=== PATIENT | male | born 1965 | race African-American/Black ===

== ENCOUNTER 2019-05-28 12:16 | Observation (INO) ==
[2019-05-28] MEDS ORDERED: ASPIRIN 325 MG TABLET PO STA (12:47)
[2019-05-28] MEDS ORDERED: ALUM/MAG/SIMETH/LIDO VISC 1:1 30 ML BOTTLE PO STA (12:47)
[2019-05-28] MEDS ORDERED: MORPHINE 4 MG/1 ML VIAL IV STA (12:47)
[2019-05-28] MEDS ORDERED: NITROGLYCERIN 2% OINT 1 INCH/GM PACK TOP STA (12:47)
[2019-05-28] MEDS ORDERED: ONDANSETRON 4 MG/2 ML VIAL IV STA (12:47)
[2019-05-28 13:00] LABS: Basophils % 0.2 % (0.0-0.8); Eosinophils # 0.1 10*3/uL (0.0-0.87); Eosinophils % 0.4 % (0.00-10.9); Hematocrit 43.1 VOL% (42.0-52.0); Hemoglobin 15.2 GM/DL (14.0-18.0); Immature Granulocytes % 0.6 %; Immature Granulocytes Absolute 0.09 #; Lymphocytes # 1.7 10*3/uL (1.4-4.0); Lymphocytes % 10.7 % (21.2-54.2); Mean Corpuscular HGB Conc 35.3 GM/DL (32-36); Mean Corpuscular Volume 81.6 FL (87-102); Mean Platelet Volume 12.2 FL (9.6-12.0); Monocytes % 2.7 % (1.7-12.7); Neutrophils % 85.4 % (38.7-73.9); Platelet Count 227 T/CUMM (130-400); Red Blood Count 5.28 MC/CUMM (3.8-5.5); Red Cell Distribution Width 14.6 % (9.3-17.3)
[2019-05-28 13:14] LABS: PT Patient Result 11.3 SECS (9.6-12.2)
[2019-05-28 13:26] LABS: Albumin 4.1 G/DL (3.4-5.0); Bilirubin,Total 1.6 MG/DL (0.2-1.0); Calcium 9.1 MG/DL (8.5-10.1); Osmolality,Calculated 284.1 MOS/KG (273-304); Total Protein 7.9 G/DL (6.4-8.3)
[2019-05-28] MEDS ORDERED: ENOXAPARIN 100 MG/ML SYRINGE SUBCUT STA (14:05)
[2019-05-28] MEDS ORDERED: ENOXAPARIN 80 MG/0.8 ML SYRINGE SUBCUT ONE (14:10)
[2019-05-28] MEDS ORDERED: MAGNESIUM SULF RIDER 2 GM in PREMIX 1 EACH IV PRN (14:43)
[2019-05-28] MEDS ORDERED: MORPHINE 4 MG/1 ML VIAL IV PRN (14:43)
[2019-05-28] MEDS ORDERED: POTASSIUM CHLORIDE 20 MEQ TABLET PO PRN (14:43)
[2019-05-28] MEDS ORDERED: ONDANSETRON 4 MG/2 ML VIAL IV PRN (14:43)
[2019-05-28] MEDS: LOSARTAN 50 MG TABLET PO SCH (15:59)
[2019-05-28] MEDS: PANTOPRAZOLE 40 MG TABLET PO SCH (15:59)
[2019-05-28] MEDS ORDERED: hydrALAZINE 20 MG/1 ML VIAL IV PRN (16:11)
[2019-05-28 18:01] LABS: Thyroid Stimulating Hormone 0.822 uIU/ml (0.358-3.74)
[2019-05-28] MEDS ORDERED: ATORVASTATIN 20 MG TABLET PO SCH (21:00)
[2019-05-28] MEDS ORDERED: METOPROLOL TARTRATE 25 MG TABLET PO SCH (21:00)
[2019-05-28] MEDS ORDERED: ATORVASTATIN 80 MG TABLET PO SCH (21:00)
[2019-05-28] MEDS: POTASSIUM CHLORIDE 20 MEQ TABLET PO PRN (22:10)
[2019-05-28] MEDS: SOTALOL 80 MG TABLET PO SCH (22:10)
[2019-05-29] MEDS: POTASSIUM CHLORIDE 20 MEQ TABLET PO PRN (00:57)
[2019-05-29] MEDS: hydrALAZINE 25 MG TABLET PO SCH ×3 (00:57→16:46)
[2019-05-29 01:57] LABS: Apearance,Urine CLEAR (Clear); Bilirubin,Urine Negative (Negative); Blood, Urine Small mg/dL (Negative); Glucose,Urine (UA) Negative (Negative); Ketones,Urine 5 mg/dL (Negative); Mucus,Urine Occasional /LPF (Occasional); Nitrite,Urine Negative (Negative); Protein,Urine Negative; RBC,Urine 3 /HPF (0-4); Urine Color Yellow (Yellow); Urine Specific Gravity 1.017 (1.001-1.035); WBC,Urine <1 /HPF (0-6)
[2019-05-29 05:10] LABS: Barbiturates Screen,Urine Negative (Negative); Benzodiazepines Screen,Urine Negative (Negative); Cannabinoid Screen,Urine Negative (Negative); Opiate Screen,Urine Positive (Negative); Phencyclidine Screen,Urine Negative (Negative)
[2019-05-29 05:19] LABS: Basophils % 0.3 % (0.0-0.8); Eosinophils % 0.1 % (0.00-10.9); Hematocrit 39.9 VOL% (42.0-52.0); Immature Granulocytes % 0.4 %; Immature Granulocytes Absolute 0.04 #; Lymphocytes # 2.2 10*3/uL (1.4-4.0); Lymphocytes % 19.6 % (21.2-54.2); Mean Corpuscular HGB Conc 37.1 GM/DL (32-36); Mean Corpuscular Volume 80.4 FL (87-102); Mean Platelet Volume 12.5 FL (9.6-12.0); Monocytes % 7.6 % (1.7-12.7); Platelet Count 237 T/CUMM (130-400); Red Blood Count 4.96 MC/CUMM (3.8-5.5); Red Cell Distribution Width 14.5 % (9.3-17.3); White Blood Count 11.2 T/CUMM (4-12)
[2019-05-29 06:01] LABS: Albumin 3.2 G/DL (3.4-5.0); Bilirubin,Total 1.7 MG/DL (0.2-1.0); Calcium 8.6 MG/DL (8.5-10.1); Osmolality,Calculated 277.5 MOS/KG (273-304); Risk Ratio 3.38; Total Protein 6.6 G/DL (6.4-8.3); VLDL CHOLESTEROL 11.8 MG/DL
[2019-05-29 06:04] LABS: Hemoglobin 14.1 GM/DL (14.0-18.0)
[2019-05-29 06:08] LABS: Free T4 (Free Thyroxine) 1.1 NG/DL (0.76-1.46)
[2019-05-29] MEDS ORDERED: methIMAzole 10 MG TABLET PO SCH (09:00)
[2019-05-29] MEDS ORDERED: ASPIRIN EC 81 MG TABLET PO SCH (09:00)
[2019-05-29] MEDS: SOTALOL 80 MG TABLET PO SCH (10:18)
[2019-05-29] MEDS: LOSARTAN 50 MG TABLET PO SCH (10:18)
[2019-05-29] MEDS: PANTOPRAZOLE 40 MG TABLET PO SCH (10:18)
[2019-05-29] MEDS ORDERED: POTASSIUM CHLORIDE 20 MEQ TABLET PO PRN (10:59)
[2019-05-29] MEDS ORDERED: ENOXAPARIN 80 MG/0.8 ML SYRINGE SUBCUT SCH (15:00)
[2019-05-29 15:54] VITALS: BP 158/92
[2019-05-29] MEDS ORDERED: WARFARIN 5 MG TABLET PO SCH (18:00)
== END 2019-05-29 15:53 | disposition home or self-care (01) ==
LOC: N.ED 12:16 → N.EDINP 12:16 → N.TELEN 15:22
PROVIDERS: ADMIT Hospitalist; ATTEND Hospitalist

== ENCOUNTER 2021-07-17 08:00 | Inpatient (IN) ==
[2021-07-17] MEDS ORDERED: DEXTROSE 50% 25 GM/50 ML VIAL IV PRN (10:32)
[2021-07-17] MEDS ORDERED: GLUCAGON 1 MG VIAL IM PRN (10:32)
[2021-07-17] MEDS ORDERED: CLORAZEPATE 3.75 MG TABLET PO PRN (10:37)
[2021-07-17] MEDS ORDERED: SODIUM CHLORIDE 0.9% 1,000 ML IV SCH (11:00)
[2021-07-17 13:56] LABS: Basophils % 0.2 % (0.0-0.8); Eosinophils % 0.4 % (0.00-10.9); Hematocrit 42.6 VOL% (42.0-52.0); Hemoglobin 14.5 GM/DL (14.0-18.0); Immature Granulocytes % 0.5 %; Immature Granulocytes Absolute 0.05 #; Lymphocytes # 2.2 10*3/uL (1.4-4.0); Lymphocytes % 20.3 % (21.2-54.2); Mean Corpuscular Volume 77.2 FL (87-102); Mean Platelet Volume 10.9 FL (9.6-12.0); Monocytes % 6.9 % (1.7-12.7); Neutrophils % 71.7 % (38.7-73.9); Platelet Count 235 T/CUMM (130-400); Red Blood Count 5.52 MC/CUMM (3.8-5.5); Red Cell Distribution Width 16.4 % (9.3-17.3); White Blood Count 10.8 T/CUMM (4-12)
[2021-07-17 14:18] LABS: Bilirubin,Total 0.9 MG/DL (0.20-1.00); Calcium 9.5 MG/DL (8.5-10.1); Osmolality,Calculated 272.8 MOS/KG (273-304); Potassium 3.7 MMOL/L (3.5-5.1); Total Protein 8.7 G/DL (6.4-8.2)
[2021-07-17 14:48] LABS: Target Cells Few
[2021-07-17 14:49] LABS: Platelet Estimate Normal
[2021-07-17] MEDS: CHLORHEXIDINE 4% SOLN 118 ML BOTTLE TOP SCH ×2 (16:26→20:21)
[2021-07-17 16:38] LABS: ABG Base Excess 1.9 MMOL/L (-2.5-2.5); ABG HCO3 26.1 MMOL/L (20-26); ABG Oxygen Saturation 97.7 % (95-100); ABG PCO2 39.4 MM HG (35-48); ABG PH 7.431 (7.35-7.45); ABG TCO2 22.3 MMOL/L (23-27); Allen Test Positive; Pt O2 Delivery Device Room Air
[2021-07-17] MEDS: CHLORHEXIDINE 0.12% ORAL RINSE 60 ML BOTTLE SWISH/SPIT SCH (20:21)
[2021-07-18] MEDS: CHLORHEXIDINE 4% SOLN 118 ML BOTTLE TOP SCH ×2 (03:40→09:47)
[2021-07-18] MEDS ORDERED: VANCOMYCIN 1,000 MG VIAL ONE (04:17)
[2021-07-18] MEDS ORDERED: VANCOMYCIN INJ 1,000 MG in SODIUM CHLORIDE 0.9% 250 ML IV ONE (05:00)
[2021-07-18] MEDS ORDERED: SODIUM CHLORIDE 0.9% 1,000 ML IV SCH (06:00)
[2021-07-18] MEDS ORDERED: MIDAZOLAM 10 MG/2 ML VIAL ONE ×4 (06:08→06:09)
[2021-07-18] MEDS ORDERED: SUFentanil 250 MCG/5 ML AMP ONE ×2 (06:09)
[2021-07-18] MEDS ORDERED: NITROGLYCERIN DRIP 0 MG/0 ML BOTTLE IV ONE ×4 (06:09)
[2021-07-18] MEDS ORDERED: ALBUMIN 5% 25.0 GM/500 ML VIAL IV ONE ×2 (06:27→08:26)
[2021-07-18] MEDS ORDERED: ePHEDrine 50 MG/ML VIAL ONE (06:28)
[2021-07-18 07:30] LABS: ABG Base Excess 1.8 MMOL/L (-2.5-2.5); ABG HCO3 26.1 MMOL/L (20-26); ABG Oxygen Saturation 99.7 % (95-100); ABG PCO2 44.4 MM HG (35-48); ABG PH 7.395 (7.35-7.45); ABG TCO2 23.7 MMOL/L (23-27); Glucose Heart Surgery 96 MG/DL (74-106); Hematocrit Heart Surgery 40.4 PERCENT (42-52); Hemoglobin Heart Surgery 13.1 G/DL (14.0-18.0); Ionized Calcium Arterial 1.16 MMOL/L (1.21-1.46); PCO2 Patient Temp Arterial 44.4 MMHG; PH Patient Temp Arterial 7.395; Patient Temperature 37 CELCIUS; Potassium Heart/CVR 3.1 MMOL/L (3.5-5.1); Sodium Heart/CVR 140 MMOL/L (135-145)
[2021-07-18 07:58] LABS: Bilirubin,Urine Negative (Negative); Blood, Urine Small mg/dL (Negative); Glucose,Urine (UA) Negative (Negative); Ketones,Urine Negative (Negative); Nitrite,Urine Negative (Negative); Protein,Urine Negative; RBC,Urine 2 /HPF (0-4); Urine Appearance CLEAR (Clear); Urine Color Yellow (Yellow); Urine Specific Gravity 1.012 (1.001-1.035); Urine Urobilinogen < 2.0 EU/DL (0.2-1.0)
[2021-07-18] MEDS ORDERED: AMIODARONE 150 MG/3 ML VIAL ONE ×2 (08:10→08:13)
[2021-07-18] MEDS ORDERED: PHENYLEPHRINE DRIP 40 MG/250 ML PREMIX IV ONE (08:24)
[2021-07-18] MEDS ORDERED: POTASSIUM CHLORIDE RIDER 20 MEQ/100 ML PREMIX IV ONE (08:24)
[2021-07-18] MEDS ORDERED: NITROPRUSSIDE 50 MG/2 ML VIAL ONE (08:24)
[2021-07-18] MEDS ORDERED: SODIUM BICARBONATE 50 MEQ/50 ML VIAL IV ONE ×4 (08:24→19:21)
[2021-07-18] MEDS ORDERED: CALCIUM CHLORIDE 1,000 MG/10 ML SYRINGE IV ONE (08:25)
[2021-07-18] MEDS ORDERED: CALCIUM CHLORIDE 1,000 MG/10 ML VIAL IV ONE (08:29)
[2021-07-18] MEDS ORDERED: SODIUM CHLORIDE 0.9% 250 ML IV ONE (08:29)
[2021-07-18] MEDS ORDERED: LIDOCAINE 2% 5 ML VIAL ONE ×2 (08:29→09:55)
[2021-07-18] MEDS ORDERED: SODIUM CHLORIDE 0.9% 100 ML IV ONE (08:29)
[2021-07-18] MEDS ORDERED: LACTATED RINGERS 500 ML IV ONE (08:29)
[2021-07-18] MEDS ORDERED: SODIUM CHLORIDE 0.9% 1,000 ML IV ONE (08:29)
[2021-07-18] MEDS ORDERED: AMINOCAPROIC ACID 5,000 MG/20 ML VIAL ONE (08:29)
[2021-07-18] MEDS ORDERED: VECURONIUM 10 MG VIAL IV ONE (08:29)
[2021-07-18] MEDS ORDERED: SEVOFLURANE 1 UNIT/15 MINUTE INH ONE (08:29)
[2021-07-18] MEDS ORDERED: HEPARIN/NACL 0.9% 2 UNITS/ML 1,000 UNIT/500 ML BAG IV ONE (08:29)
[2021-07-18 08:32] LABS: Hemoglobin Heart Surgery 9.4 G/DL (14.0-18.0); PCO2 Patient Temp Venous 33.4 MM HG; PH Patient Temp Venous 7.48; PO2 Patient Temp Venous 44.2 MM HG; Potassium Heart/CVR 3.2 MMOL/L (3.5-5.1); VBG Base Excess 0.9 MEQ/L (0-4); VBG HCO3 24.8 MEQ/L (24-28); VBG Oxygen Saturation 85.7 %; VBG PCO2 36.5 MMHG (41-51); VBG PH 7.45; VBG PO2 50.8 MMHG (17-40); VBG Total CO2 25.9 MMOL/L
[2021-07-18] MEDS ORDERED: PHENYLEPHRINE DRIP 20 MG/250 ML PREMIX IV ONE (08:52)
[2021-07-18 09:06] LABS: Hemoglobin Heart Surgery 10.1 G/DL (14.0-18.0); PCO2 Patient Temp Venous 31.1 MM HG; PH Patient Temp Venous 7.493; PO2 Patient Temp Venous 38.9 MM HG; Potassium Heart/CVR 3.4 MMOL/L (3.5-5.1); VBG Base Excess 0.1 MEQ/L (0-4); VBG HCO3 24.2 MEQ/L (24-28); VBG Oxygen Saturation 85.9 %; VBG PCO2 37.1 MMHG (41-51); VBG PH 7.433; VBG PO2 51.5 MMHG (17-40); VBG Total CO2 25.4 MMOL/L
[2021-07-18] MEDS: CHLORHEXIDINE 0.12% ORAL RINSE 60 ML BOTTLE SWISH/SPIT SCH ×2 (09:47→21:31)
[2021-07-18 09:52] LABS: ABG Base Excess -1.4 MMOL/L (-2.5-2.5); ABG HCO3 23.3 MMOL/L (20-26); ABG Oxygen Saturation 99.8 % (95-100); ABG PCO2 38.7 MM HG (35-48); ABG PH 7.389 (7.35-7.45); ABG TCO2 21.2 MMOL/L (23-27); Glucose Heart Surgery 166 MG/DL (74-106); Hematocrit Heart Surgery 31.7 PERCENT (42-52); Hemoglobin Heart Surgery 10.2 G/DL (14.0-18.0); Ionized Calcium Arterial 1.26 MMOL/L (1.21-1.46); PCO2 Patient Temp Arterial 38.7 MMHG; PH Patient Temp Arterial 7.389; Patient Temperature 37 CELCIUS; Potassium Heart/CVR 3.4 MMOL/L (3.5-5.1); Sodium Heart/CVR 136 MMOL/L (135-145)
[2021-07-18] MEDS ORDERED: ALBUMIN 25% 25 GM/100 ML VIAL IV ONE (09:54)
[2021-07-18] MEDS ORDERED: PROTAMINE SULFATE 250 MG/25 ML VIAL IV ONE (09:55)
[2021-07-18] MEDS ORDERED: PROTAMINE SULFATE 50 MG/5 ML VIAL IV ONE ×2 (09:55→14:28)
[2021-07-18] MEDS ORDERED: FUROSEMIDE 20 MG/2 ML VIAL ONE (09:55)
[2021-07-18] MEDS ORDERED: methylPREDNISolone SOD SUC 1,000 MG/8 ML VIAL ONE (09:55)
[2021-07-18] MEDS ORDERED: HEPARIN 10,000 UNIT/10 ML VIAL ONE (09:55)
[2021-07-18] MEDS ORDERED: MAGNESIUM SULFATE 5 GM/10 ML VIAL IV ONE (09:55)
[2021-07-18] MEDS ORDERED: MANNITOL 100 GM/500 ML BAG IV ONE (09:55)
[2021-07-18] MEDS ORDERED: DEXTROSE 5% KCL 20 MEQ 20 MEQ/1,000 ML BAG IV ONE (09:55)
[2021-07-18] MEDS ORDERED: MIDAZOLAM 2 MG/2 ML VIAL IV PRN (10:03)
[2021-07-18] MEDS ORDERED: MIDAZOLAM 10 MG/2 ML VIAL IV PRN (10:03)
[2021-07-18] MEDS ORDERED: DEXTROSE 50% 25 GM/50 ML VIAL IV PRN ×2 (10:03)
[2021-07-18] MEDS ORDERED: CHLORHEXIDINE 4% SOLN 118 ML BOTTLE TOP PRN (10:03)
[2021-07-18] MEDS ORDERED: INSULIN REGULAR 100 UNIT/ML IV ONE (10:03)
[2021-07-18] MEDS ORDERED: INSULIN REGULAR DRIP 100 ML IV SCH (10:03)
[2021-07-18] MEDS ORDERED: NITROPRUSSIDE 100 MG in DEXTROSE 5% 250 ML IV PRN (10:03)
[2021-07-18] MEDS ORDERED: MAGNESIUM SULF RIDER 4 GM/100 ML PREMIX IV PRN (10:03)
[2021-07-18] MEDS ORDERED: MORPHINE 10 MG/1 ML VIAL IV PRN (10:03)
[2021-07-18] MEDS ORDERED: ACETAMINOPHEN 650 MG SUPP RECTAL PRN (10:03)
[2021-07-18] MEDS ORDERED: VECURONIUM 10 MG VIAL IV PRN ×2 (10:03)
[2021-07-18] MEDS ORDERED: ALBUMIN 5% 12.5 GM/250 ML VIAL IV PRN (10:03)
[2021-07-18] MEDS ORDERED: INSULIN REGULAR 100 UNIT/ML IV PRN (10:03)
[2021-07-18] MEDS ORDERED: PHENYLEPHRINE DRIP 40 MG/250 ML PREMIX IV PRN (10:03)
[2021-07-18] MEDS ORDERED: MAGNESIUM SULF RIDER 2 GM/50 ML PREMIX IV PRN (10:03)
[2021-07-18] MEDS ORDERED: CALCIUM CHLORIDE 1,000 MG/10 ML SYRINGE IV PRN (10:03)
[2021-07-18] MEDS ORDERED: ONDANSETRON 4 MG/2 ML VIAL IV PRN (10:03)
[2021-07-18] MEDS ORDERED: SODIUM CHLORIDE 0.45% 1,000 ML IV SCH (10:03)
[2021-07-18] MEDS: SODIUM CHLORIDE 0.45% 1,000 ML IV SCH (11:00)
[2021-07-18] MEDS ORDERED: AMIODARONE INJ 450 MG in DEXTROSE 5% 241 ML IV SCH (11:00)
[2021-07-18] MEDS: LACTATED RINGERS 250 ML IV PRN ×10 (11:10→22:51)
[2021-07-18 11:13] LABS: ABG Base Excess -1.8 MMOL/L (-2.5-2.5); ABG HCO3 22.5 MMOL/L (20-26); ABG Oxygen Saturation 98.2 % (95-100); ABG PCO2 36.6 MM HG (35-48); ABG PH 7.407 (7.35-7.45); ABG PO2 164.1 MM HG (80-95); ABG TCO2 23.6 MMOL/L (23-27); Glucose Heart Surgery 126 MG/DL (74-106); Hemoglobin Heart Surgery 10.8 G/DL (14.0-18.0); Potassium Heart/CVR 3.3 MMOL/L (3.5-5.1)
[2021-07-18 11:15] LABS: Basophils % 0.2 % (0.0-0.8); Eosinophils % 0.2 % (0.00-10.9); Hematocrit 30.5 VOL% (42.0-52.0); Immature Granulocytes % 0.7 %; Immature Granulocytes Absolute 0.09 #; Lymphocytes # 0.9 10*3/uL (1.4-4.0); Mean Corpuscular HGB Conc 34.1 GM/DL (32-36); Mean Corpuscular Volume 77.6 FL (87-102); Mean Platelet Volume 11.1 FL (9.6-12.0); Monocytes % 3.1 % (1.7-12.7); Neutrophils % 88.8 % (38.7-73.9); Red Cell Distribution Width 16.1 % (9.3-17.3); White Blood Count 12.9 T/CUMM (4-12)
[2021-07-18 11:20] LABS: Hemoglobin 10.4 GM/DL (14.0-18.0); Platelet Count 160 T/CUMM (130-400); Red Blood Count 3.93 MC/CUMM (3.8-5.5)
[2021-07-18 11:29] LABS: INR 1.2; PT Patient Result 13.8 SECS (10.5-12.0); Partial Thromboplastin Time 32.8 SECS (23.8-32.1)
[2021-07-18] MEDS: POTASSIUM CHLORIDE RIDER 20 MEQ/100 ML PREMIX IV PRN ×6 (11:33→22:23)
[2021-07-18 11:46] LABS: CKMB % 7.9 %
[2021-07-18 11:47] LABS: High Sensitive Troponin I* 4231.1 ng/L (0-78)
[2021-07-18 11:58] LABS: Albumin 3.4 G/DL (3.4-5.0); Bilirubin,Total 1.3 MG/DL (0.20-1.00); Calcium 8.3 MG/DL (8.5-10.1); Osmolality,Calculated 280.4 MOS/KG (273-304); Potassium 3.4 MMOL/L (3.5-5.1); Total Protein 6.3 G/DL (6.4-8.2)
[2021-07-18 13:17] LABS: ABG HCO3 22.2 MMOL/L (20-26); ABG PCO2 35.9 MM HG (35-48); ABG PH 7.409 (7.35-7.45); ABG PO2 138.6 MM HG (80-95); ABG TCO2 23.3 MMOL/L (23-27); Glucose Heart Surgery 149 MG/DL (74-106); Hemoglobin Heart Surgery 10.9 G/DL (14.0-18.0); Potassium Heart/CVR 3.8 MMOL/L (3.5-5.1)
[2021-07-18] MEDS: POTASSIUM CHLORIDE RIDER 10 MEQ/100 ML PREMIX IV PRN ×3 (13:59→22:55)
[2021-07-18] MEDS ORDERED: KETOROLAC 30 MG/1 ML VIAL IV SCH (14:00)
[2021-07-18 15:17] LABS: ABG Base Excess -0.8 MMOL/L (-2.5-2.5); ABG HCO3 23.8 MMOL/L (20-26); ABG Oxygen Saturation 98.6 % (95-100); ABG PCO2 36.6 MM HG (35-48); ABG PH 7.415 (7.35-7.45); ABG TCO2 21.4 MMOL/L (23-27); Glucose Heart Surgery 184 MG/DL (74-106); Hematocrit Heart Surgery 29.4 PERCENT (42-52); Hemoglobin Heart Surgery 9.5 G/DL (14.0-18.0); Potassium Heart/CVR 4.3 MMOL/L (3.5-5.1)
[2021-07-18] MEDS: AMIODARONE INJ 450 MG in DEXTROSE 5% 241 ML IV SCH (16:41)
[2021-07-18] MEDS ORDERED: FUROSEMIDE 40 MG/4 ML VIAL IV ONE (18:04)
[2021-07-18] MEDS ORDERED: FUROSEMIDE 40 MG/4 ML VIAL IV PRN (18:05)
[2021-07-18 18:09] LABS: ABG Base Excess -6.8 MMOL/L (-2.5-2.5); ABG HCO3 18.9 MMOL/L (20-26); ABG Oxygen Saturation 98.4 % (95-100); ABG PCO2 39.5 MM HG (35-48); ABG PH 7.296 (7.35-7.45); ABG TCO2 17.6 MMOL/L (23-27); Glucose Heart Surgery 220 MG/DL (74-106); Hemoglobin Heart Surgery 10.7 G/DL (14.0-18.0); Potassium Heart/CVR 3.6 MMOL/L (3.5-5.1)
[2021-07-18] MEDS: INSULIN REGULAR 100 UNIT/ML SUBCUT SCH (18:21)
[2021-07-18 19:09] LABS: ABG Base Excess -6.2 MMOL/L (-2.5-2.5); ABG HCO3 19.3 MMOL/L (20-26); ABG Oxygen Saturation 98.4 % (95-100); ABG PCO2 34.8 MM HG (35-48); Glucose Heart Surgery 243 MG/DL (74-106); Hematocrit Heart Surgery 34.4 PERCENT (42-52); Hemoglobin Heart Surgery 11.2 G/DL (14.0-18.0); Potassium Heart/CVR 3.8 MMOL/L (3.5-5.1)
[2021-07-18 19:38] LABS: CKMB % 6.6 %
[2021-07-18 19:41] LABS: High Sensitive Troponin I* 12532.9 ng/L (0-78)
[2021-07-18 20:00] LABS: Hematocrit Heart Surgery 34.1 PERCENT (42-52); Hemoglobin Heart Surgery 11.1 G/DL (14.0-18.0); PCO2 Patient Temp Venous 39.1 MM HG; PH Patient Temp Venous 7.314; Potassium Heart/CVR 3.9 MMOL/L (3.5-5.1); VBG HCO3 19.3 MEQ/L (24-28); VBG Oxygen Saturation 82.5 %; VBG PCO2 39.1 MMHG (41-51); VBG PH 7.314
[2021-07-18] MEDS: VANCOMYCIN INJ 1,000 MG in SODIUM CHLORIDE 0.9% 250 ML IV SCH (21:45)
[2021-07-18 21:49] LABS: ABG Base Excess -7.2 MMOL/L (-2.5-2.5); ABG HCO3 18.6 MMOL/L (20-26); ABG Oxygen Saturation 98.6 % (95-100); ABG PH 7.323 (7.35-7.45); ABG TCO2 16.4 MMOL/L (23-27); Glucose Heart Surgery 231 MG/DL (74-106); Hematocrit Heart Surgery 34.7 PERCENT (42-52); Hemoglobin Heart Surgery 11.3 G/DL (14.0-18.0); Potassium Heart/CVR 3.7 MMOL/L (3.5-5.1)
[2021-07-18] MEDS ORDERED: INSULIN REGULAR DRIP 100 ML IV PRN (22:31)
[2021-07-18 22:57] LABS: ABG Base Excess -7.4 MMOL/L (-2.5-2.5); ABG HCO3 18.5 MMOL/L (20-26); ABG Oxygen Saturation 98.7 % (95-100); ABG PCO2 34.9 MM HG (35-48); ABG TCO2 16.3 MMOL/L (23-27); Glucose Heart Surgery 213 MG/DL (74-106); Potassium Heart/CVR 4.2 MMOL/L (3.5-5.1)
[2021-07-18 23:47] LABS: ABG HCO3 18.7 MMOL/L (20-26); ABG Oxygen Saturation 98.8 % (95-100); ABG PH 7.318 (7.35-7.45); ABG TCO2 16.6 MMOL/L (23-27); Glucose Heart Surgery 208 MG/DL (74-106); Hemoglobin Heart Surgery 11.4 G/DL (14.0-18.0); Potassium Heart/CVR 4.2 MMOL/L (3.5-5.1)
[2021-07-19] MEDS: INSULIN REGULAR 100 UNIT/ML SUBCUT SCH ×4 (00:16→18:10)
[2021-07-19 01:38] LABS: ABG Base Excess -4.4 MMOL/L (-2.5-2.5); ABG HCO3 20.8 MMOL/L (20-26); ABG PCO2 35.6 MM HG (35-48); ABG PH 7.365 (7.35-7.45); ABG TCO2 18.3 MMOL/L (23-27); Glucose Heart Surgery 160 MG/DL (74-106); Hematocrit Heart Surgery 33.8 PERCENT (42-52); Potassium Heart/CVR 3.9 MMOL/L (3.5-5.1)
[2021-07-19 02:36] LABS: ABG Base Excess -3.1 MMOL/L (-2.5-2.5); ABG HCO3 21.9 MMOL/L (20-26); ABG Oxygen Saturation 98.9 % (95-100); ABG PCO2 34.9 MM HG (35-48); ABG PH 7.392 (7.35-7.45); ABG TCO2 19.2 MMOL/L (23-27); Glucose Heart Surgery 142 MG/DL (74-106); Hemoglobin Heart Surgery 10.7 G/DL (14.0-18.0); Potassium Heart/CVR 3.8 MMOL/L (3.5-5.1)
[2021-07-19] MEDS: POTASSIUM CHLORIDE RIDER 20 MEQ/100 ML PREMIX IV PRN (02:44)
[2021-07-19] MEDS: POTASSIUM CHLORIDE RIDER 10 MEQ/100 ML PREMIX IV PRN (03:15)
[2021-07-19 03:29] LABS: ABG Base Excess -3.2 MMOL/L (-2.5-2.5); ABG HCO3 21.8 MMOL/L (20-26); ABG Oxygen Saturation 99.2 % (95-100); ABG PCO2 36.9 MM HG (35-48); ABG PH 7.375 (7.35-7.45); ABG TCO2 19.6 MMOL/L (23-27); Glucose Heart Surgery 141 MG/DL (74-106); Hemoglobin Heart Surgery 10.3 G/DL (14.0-18.0); Potassium Heart/CVR 4.3 MMOL/L (3.5-5.1)
[2021-07-19 03:30] LABS: Basophils % 0.1 % (0.0-0.8); Hematocrit 29.4 VOL% (42.0-52.0); Hemoglobin 10.1 GM/DL (14.0-18.0); Immature Granulocytes % 0.6 %; Immature Granulocytes Absolute 0.09 #; Lymphocytes # 0.8 10*3/uL (1.4-4.0); Mean Corpuscular HGB Conc 34.4 GM/DL (32-36); Mean Platelet Volume 11.1 FL (9.6-12.0); Monocytes % 8.6 % (1.7-12.7); Neutrophils % 85.7 % (38.7-73.9); Platelet Count 173 T/CUMM (130-400); Red Blood Count 3.72 MC/CUMM (3.8-5.5); Red Cell Distribution Width 17.9 % (9.3-17.3); White Blood Count 16.3 T/CUMM (4-12)
[2021-07-19 03:48] LABS: CKMB % 5.6 %
[2021-07-19 03:57] LABS: High Sensitive Troponin I* 15055.2 ng/L (0-78)
[2021-07-19 04:18] LABS: Albumin 3.6 G/DL (3.4-5.0); Bilirubin,Direct 0.2 MG/DL (0.0-0.20); Bilirubin,Total 1.2 MG/DL (0.20-1.00); Calcium 8.1 MG/DL (8.5-10.1); Potassium 4.3 MMOL/L (3.5-5.1); Total Protein 6.7 G/DL (6.4-8.2)
[2021-07-19] MEDS ORDERED: KETOROLAC 30 MG/1 ML VIAL IV ONE (06:02)
[2021-07-19] MEDS: AMIODARONE INJ 450 MG in DEXTROSE 5% 241 ML IV SCH (08:00)
[2021-07-19] MEDS: VANCOMYCIN INJ 1,000 MG in SODIUM CHLORIDE 0.9% 250 ML IV SCH (08:30)
[2021-07-19] MEDS: hydrALAZINE 25 MG TABLET PO SCH (08:42)
[2021-07-19] MEDS: methIMAzole 5 MG TABLET PO SCH (08:42)
[2021-07-19] MEDS: ASPIRIN EC 81 MG TABLET PO SCH (08:42)
[2021-07-19] MEDS: PANTOPRAZOLE 40 MG TABLET PO SCH (08:42)
[2021-07-19] MEDS: AMIODARONE 200 MG TABLET PO SCH ×2 (08:42→20:04)
[2021-07-19] MEDS: LOSARTAN 50 MG TABLET PO SCH (08:42)
[2021-07-19] MEDS: CHLORHEXIDINE 0.12% ORAL RINSE 60 ML BOTTLE SWISH/SPIT SCH ×2 (08:50→20:05)
[2021-07-19] MEDS: SODIUM CHLORIDE 0.45% 1,000 ML IV SCH (11:00)
[2021-07-19] MEDS: KETOROLAC 30 MG/1 ML VIAL IV SCH ×2 (12:25→18:10)
[2021-07-19] MEDS ORDERED: GLUCAGON 1 MG VIAL IM PRN (15:12)
[2021-07-19] MEDS ORDERED: ONDANSETRON 4 MG/2 ML VIAL IV PRN (15:12)
[2021-07-19] MEDS ORDERED: ALUMINUM/MAGNES/SIMETH MAX STR 30 ML UDCUP PO PRN (15:12)
[2021-07-19] MEDS ORDERED: MAGNESIUM SULF RIDER 2 GM/50 ML PREMIX IV PRN (15:12)
[2021-07-19] MEDS ORDERED: oxyCODONE/ACETAMINOPHEN 5-325 MG TABLET PO PRN (15:12)
[2021-07-19] MEDS ORDERED: MAGNESIUM SULF RIDER 4 GM/100 ML PREMIX IV PRN (15:12)
[2021-07-19] MEDS ORDERED: ZALEPLON 5 MG CAPSULE PO PRN (15:12)
[2021-07-19] MEDS ORDERED: SODIUM CHLOR 0.45% KCL 20 MEQ 20 MEQ/1,000 ML BAG IV SCH (15:12)
[2021-07-19] MEDS ORDERED: DEXTROSE 50% 25 GM/50 ML VIAL IV PRN (15:12)
[2021-07-19] MEDS ORDERED: MAGNESIUM HYDROXIDE SUSP 30 ML UDCUP PO PRN (15:12)
[2021-07-19] MEDS: ATORVASTATIN 80 MG TABLET PO SCH (20:04)
[2021-07-20] MEDS: VANCOMYCIN INJ 1,000 MG in SODIUM CHLORIDE 0.9% 250 ML IV SCH ×2 (00:04→11:39)
[2021-07-20] MEDS: KETOROLAC 30 MG/1 ML VIAL IV SCH ×2 (00:04→06:00)
[2021-07-20] MEDS: INSULIN REGULAR 100 UNIT/ML SUBCUT SCH ×5 (00:21→23:41)
[2021-07-20] MEDS ORDERED: FUROSEMIDE 40 MG/4 ML VIAL IV ONE ×3 (06:00→16:00)
[2021-07-20 07:06] LABS: Albumin 2.8 G/DL (3.4-5.0); Bilirubin,Direct 0.22 MG/DL (0.0-0.20); Bilirubin,Direct 0.23 MG/DL (0.0-0.20); Bilirubin,Indirect 0.6 MG/DL (0.0-1.0); Bilirubin,Total 0.8 MG/DL (0.20-1.00); CKMB % 2.3 %; Calcium 8.3 MG/DL (8.5-10.1); Osmolality,Calculated 285.5 MOS/KG (273-304); Potassium 4.6 MMOL/L (3.5-5.1); Total Protein 5.9 G/DL (6.4-8.2)
[2021-07-20 07:08] LABS: High Sensitive Troponin I* 10028.9 ng/L (0-78)
[2021-07-20] MEDS ORDERED: KETOROLAC 15 MG/1 ML VIAL IV PRN (07:40)
[2021-07-20] MEDS: methIMAzole 5 MG TABLET PO SCH (09:51)
[2021-07-20] MEDS: FERROUS SULFATE 325 MG TABLET PO SCH (09:51)
[2021-07-20] MEDS: DOCUSATE SODIUM 100 MG CAPSULE PO SCH (09:51)
[2021-07-20] MEDS: ASPIRIN EC 81 MG TABLET PO SCH (09:52)
[2021-07-20] MEDS: FUROSEMIDE 40 MG TABLET PO SCH (09:52)
[2021-07-20] MEDS: PANTOPRAZOLE 40 MG TABLET PO SCH (09:52)
[2021-07-20] MEDS: hydrALAZINE 25 MG TABLET PO SCH (09:52)
[2021-07-20] MEDS: LOSARTAN 50 MG TABLET PO SCH (09:52)
[2021-07-20] MEDS: CHLORHEXIDINE 0.12% ORAL RINSE 60 ML BOTTLE SWISH/SPIT SCH ×2 (09:52→20:14)
[2021-07-20] MEDS: AMIODARONE 200 MG TABLET PO SCH ×2 (09:52→20:13)
[2021-07-20 10:33] LABS: Basophils % 0.1 % (0.0-0.8); Immature Granulocytes % 1.1 %; Immature Granulocytes Absolute 0.27 #; Lymphocytes # 1.4 10*3/uL (1.4-4.0); Lymphocytes % 5.6 % (21.2-54.2); Mean Corpuscular HGB Conc 34.2 GM/DL (32-36); Mean Corpuscular Volume 81.9 FL (87-102); Mean Platelet Volume 11.8 FL (9.6-12.0); Monocytes % 7.6 % (1.7-12.7); Neutrophils % 85.6 % (38.7-73.9); Platelet Count 121 T/CUMM (130-400); Red Cell Distribution Width 18.6 % (9.3-17.3)
[2021-07-20 10:52] LABS: Hemoglobin 6.5 GM/DL (14.0-18.0); Red Blood Count 2.32 MC/CUMM (3.8-5.5); White Blood Count 24.5 T/CUMM (4-12)
[2021-07-20 10:54] LABS: Lymphocytes 6 % (20-55); Segmented Neutrophils 91 % (50-85); Total Cells Counted 100
[2021-07-20 10:55] LABS: Hypochromasia 2+; Microcytosis 1+
[2021-07-20] MEDS ORDERED: SODIUM CHLORIDE 0.9% 1,000 ML IV PRN (11:55)
[2021-07-20] MEDS: ATORVASTATIN 80 MG TABLET PO SCH (20:13)
[2021-07-21 05:48] LABS: Basophils % 0.1 % (0.0-0.8); Immature Granulocytes % 0.9 %; Immature Granulocytes Absolute 0.17 #; Lymphocytes # 2.3 10*3/uL (1.4-4.0); Lymphocytes % 11.8 % (21.2-54.2); Mean Corpuscular HGB Conc 35.5 GM/DL (32-36); Monocytes % 9.8 % (1.7-12.7); NRBC # 0.02 10*3/uL; Neutrophils % 77.4 % (38.7-73.9); Platelet Count 120 T/CUMM (130-400); Red Blood Count 2.15 MC/CUMM (3.8-5.5); Red Cell Distribution Width 18.2 % (9.3-17.3); White Blood Count 19.1 T/CUMM (4-12)
[2021-07-21 06:20] LABS: Albumin 2.7 G/DL (3.4-5.0); Bilirubin,Direct 0.24 MG/DL (0.0-0.20); Bilirubin,Total 1.3 MG/DL (0.20-1.00); Calcium 7.8 MG/DL (8.5-10.1); Osmolality,Calculated 289.4 MOS/KG (273-304); Potassium 3.6 MMOL/L (3.5-5.1); Total Protein 5.8 G/DL (6.4-8.2)
[2021-07-21 06:23] LABS: Alanine Aminotransferase 15 U/L (16-61); Albumin 2.8 G/DL (3.4-5.0); Alkaline Phosphatase 47 U/L (45-117); Aspartate Amino Transferase 24 U/L (0-37); Bilirubin,Indirect 1.4 MG/DL (0.0-1.0); Total Protein 5.4 G/DL (6.4-8.2)
[2021-07-21 06:31] LABS: Hematocrit 17.2 VOL% (42.0-52.0); Hemoglobin 6.1 GM/DL (14.0-18.0)
[2021-07-21] MEDS: INSULIN REGULAR 100 UNIT/ML SUBCUT SCH ×4 (07:05→21:17)
[2021-07-21] MEDS ORDERED: SOTALOL 80 MG TABLET PO ONE (08:07)
[2021-07-21] MEDS ORDERED: FUROSEMIDE 40 MG/4 ML VIAL IV SCH (09:00)
[2021-07-21] MEDS: AMIODARONE 200 MG TABLET PO SCH ×2 (09:12→21:14)
[2021-07-21] MEDS: hydrALAZINE 25 MG TABLET PO SCH (09:12)
[2021-07-21] MEDS: PANTOPRAZOLE 40 MG TABLET PO SCH (09:12)
[2021-07-21] MEDS: FERROUS SULFATE 325 MG TABLET PO SCH (09:12)
[2021-07-21] MEDS: ASPIRIN EC 81 MG TABLET PO SCH (09:13)
[2021-07-21] MEDS: DOCUSATE SODIUM 100 MG CAPSULE PO SCH (09:13)
[2021-07-21] MEDS: methIMAzole 5 MG TABLET PO SCH (09:13)
[2021-07-21] MEDS: FUROSEMIDE 40 MG/4 ML VIAL IV SCH ×2 (09:14→21:17)
[2021-07-21] MEDS: CHLORHEXIDINE 0.12% ORAL RINSE 60 ML BOTTLE SWISH/SPIT SCH ×2 (09:18→21:17)
[2021-07-21] MEDS ORDERED: PNEUMOCOCCAL VACCINE (23 VALENT) 0.5 ML VIAL IM ONE (12:21)
[2021-07-21 17:48] LABS: Hematocrit 25.6 VOL% (42.0-52.0); Hemoglobin 8.8 GM/DL (14.0-18.0)
[2021-07-21] MEDS: ATORVASTATIN 80 MG TABLET PO SCH (21:14)
[2021-07-22 04:28] LABS: Basophils % 0.1 % (0.0-0.8); Hematocrit 29.3 VOL% (42.0-52.0); Lymphocytes # 1.7 10*3/uL (1.4-4.0); Mean Corpuscular HGB Conc 34.1 GM/DL (32-36); Mean Corpuscular Volume 81.8 FL (87-102); Mean Platelet Volume 11.4 FL (9.6-12.0); Monocytes % 7.9 % (1.7-12.7); NRBC # 0.06 10*3/uL; Platelet Count 181 T/CUMM (130-400); Red Blood Count 3.58 MC/CUMM (3.8-5.5); Red Cell Distribution Width 17.5 % (9.3-17.3); White Blood Count 20.5 T/CUMM (4-12)
[2021-07-22 04:47] LABS: Calcium 8.8 MG/DL (8.5-10.1); Osmolality,Calculated 284.7 MOS/KG (273-304); Potassium 3.1 MMOL/L (3.5-5.1)
[2021-07-22 04:54] LABS: Hypochromasia 1+; Microcytosis 1+; Platelet Estimate Normal; Stomatocytes Slight; Target Cells Few
[2021-07-22] MEDS: INSULIN REGULAR 100 UNIT/ML SUBCUT SCH ×4 (09:36→21:16)
[2021-07-22] MEDS: FUROSEMIDE 40 MG/4 ML VIAL IV SCH (09:37)
[2021-07-22] MEDS: AMIODARONE 200 MG TABLET PO SCH ×2 (09:56→21:15)
[2021-07-22] MEDS: methIMAzole 5 MG TABLET PO SCH (09:56)
[2021-07-22] MEDS: DOCUSATE SODIUM 100 MG CAPSULE PO SCH (09:56)
[2021-07-22] MEDS: hydrALAZINE 25 MG TABLET PO SCH (09:56)
[2021-07-22] MEDS: ASPIRIN EC 81 MG TABLET PO SCH (09:57)
[2021-07-22] MEDS: FERROUS SULFATE 325 MG TABLET PO SCH (09:57)
[2021-07-22] MEDS: POTASSIUM CHLORIDE 20 MEQ TABLET PO PRN ×6 (09:57→23:23)
[2021-07-22] MEDS: PANTOPRAZOLE 40 MG TABLET PO SCH (09:57)
[2021-07-22] MEDS: SOTALOL 80 MG TABLET PO SCH (09:57)
[2021-07-22] MEDS: CHLORHEXIDINE 0.12% ORAL RINSE 60 ML BOTTLE SWISH/SPIT SCH ×2 (10:36→21:16)
[2021-07-22] MEDS: ACETAMINOPHEN 325 MG TABLET PO PRN (15:15)
[2021-07-22] MEDS: LEVOFLOXACIN INJ 500 MG/100 ML PREMIX IV SCH (16:50)
[2021-07-22] MEDS ORDERED: hydrALAZINE 25 MG TABLET PO SCH (21:00)
[2021-07-22] MEDS: ATORVASTATIN 80 MG TABLET PO SCH (21:15)
[2021-07-23] MEDS ORDERED: hydrALAZINE 20 MG/1 ML VIAL IV ONE (04:31)
[2021-07-23 05:13] LABS: Basophils % 0.1 % (0.0-0.8); Eosinophils % 0.2 % (0.00-10.9); Hematocrit 28.3 VOL% (42.0-52.0); Hemoglobin 9.6 GM/DL (14.0-18.0); Immature Granulocytes % 0.9 %; Immature Granulocytes Absolute 0.15 #; Lymphocytes # 1.5 10*3/uL (1.4-4.0); Lymphocytes % 8.7 % (21.2-54.2); Mean Corpuscular HGB Conc 33.9 GM/DL (32-36); Mean Corpuscular Volume 81.8 FL (87-102); Mean Platelet Volume 11.3 FL (9.6-12.0); Monocytes % 8.7 % (1.7-12.7); NRBC # 0.06 10*3/uL; Neutrophils % 81.4 % (38.7-73.9); Platelet Count 201 T/CUMM (130-400); Red Blood Count 3.46 MC/CUMM (3.8-5.5); Red Cell Distribution Width 17.5 % (9.3-17.3); White Blood Count 17.6 T/CUMM (4-12)
[2021-07-23 05:34] LABS: Alanine Aminotransferase 42 U/L (16-61); Albumin 2.8 G/DL (3.4-5.0); Alkaline Phosphatase 52 U/L (45-117); Aspartate Amino Transferase 34 U/L (0-37); Bilirubin,Indirect 1.4 MG/DL (0.0-1.0); Blood Urea Nitrogen 24 MG/DL (7-18); Calcium 8.6 MG/DL (8.5-10.1); Carbon Dioxide 27 MMOL/L (21-32); Estimated Glom Filtration Rate 67 ML/MIN; Glucose 93 MG/DL (74-106); Osmolality,Calculated 280.5 MOS/KG (273-304); Potassium 3.9 MMOL/L (3.5-5.1); Sodium 139 MMOL/L (136-145); Total Protein 6.7 G/DL (6.4-8.2)
[2021-07-23] MEDS: DOCUSATE SODIUM 100 MG CAPSULE PO SCH (08:16)
[2021-07-23] MEDS: FERROUS SULFATE 325 MG TABLET PO SCH (08:16)
[2021-07-23] MEDS: methIMAzole 5 MG TABLET PO SCH (08:16)
[2021-07-23] MEDS: hydrALAZINE 25 MG TABLET PO SCH ×3 (08:16→21:26)
[2021-07-23] MEDS: FUROSEMIDE 40 MG TABLET PO SCH (08:16)
[2021-07-23] MEDS: AMIODARONE 200 MG TABLET PO SCH ×2 (08:16→21:23)
[2021-07-23] MEDS: PANTOPRAZOLE 40 MG TABLET PO SCH (08:16)
[2021-07-23] MEDS: ASPIRIN EC 81 MG TABLET PO SCH (08:16)
[2021-07-23] MEDS: SOTALOL 80 MG TABLET PO SCH (08:17)
[2021-07-23] MEDS: INSULIN REGULAR 100 UNIT/ML SUBCUT SCH ×4 (08:27→21:27)
[2021-07-23] MEDS: CHLORHEXIDINE 0.12% ORAL RINSE 60 ML BOTTLE SWISH/SPIT SCH ×2 (09:39→21:26)
[2021-07-23] MEDS ORDERED: hydrALAZINE 20 MG/1 ML VIAL IV PRN (09:57)
[2021-07-23] MEDS: LEVOFLOXACIN INJ 500 MG/100 ML PREMIX IV SCH (15:57)
[2021-07-23] MEDS: ACETAMINOPHEN 325 MG TABLET PO PRN (16:13)
[2021-07-23] MEDS: METOPROLOL TARTRATE 25 MG TABLET PO SCH (21:22)
[2021-07-23] MEDS: ATORVASTATIN 80 MG TABLET PO SCH (21:23)
[2021-07-24 06:28] LABS: Basophils % 0.1 % (0.0-0.8); Eosinophils # 0.1 10*3/uL (0.0-0.87); Eosinophils % 0.4 % (0.00-10.9); Hematocrit 27.3 VOL% (42.0-52.0); Hemoglobin 9.3 GM/DL (14.0-18.0); Immature Granulocytes % 1.4 %; Immature Granulocytes Absolute 0.27 #; Lymphocytes # 1.8 10*3/uL (1.4-4.0); Lymphocytes % 9.3 % (21.2-54.2); Mean Corpuscular HGB Conc 34.1 GM/DL (32-36); Mean Platelet Volume 10.6 FL (9.6-12.0); Monocytes % 7.6 % (1.7-12.7); NRBC # 0.04 10*3/uL; Neutrophils % 81.2 % (38.7-73.9); Platelet Count 253 T/CUMM (130-400); Red Blood Count 3.29 MC/CUMM (3.8-5.5); Red Cell Distribution Width 17.5 % (9.3-17.3); White Blood Count 19.3 T/CUMM (4-12)
[2021-07-24 06:56] LABS: Alanine Aminotransferase 76 U/L (16-61); Albumin 2.6 G/DL (3.4-5.0); Alkaline Phosphatase 51 U/L (45-117); Aspartate Amino Transferase 51 U/L (0-37); Bilirubin,Indirect 1.3 MG/DL (0.0-1.0); Blood Urea Nitrogen 24 MG/DL (7-18); Calcium 8.6 MG/DL (8.5-10.1); Carbon Dioxide 27 MMOL/L (21-32); Estimated Glom Filtration Rate 62 ML/MIN; Glucose 97 MG/DL (74-106); Osmolality,Calculated 276.8 MOS/KG (273-304); Potassium 3.3 MMOL/L (3.5-5.1); Sodium 137 MMOL/L (136-145); Total Protein 6.6 G/DL (6.4-8.2)
[2021-07-24] MEDS: INSULIN REGULAR 100 UNIT/ML SUBCUT SCH ×4 (08:19→21:29)
[2021-07-24] MEDS: FERROUS SULFATE 325 MG TABLET PO SCH (09:17)
[2021-07-24] MEDS: POTASSIUM CHLORIDE 20 MEQ TABLET PO PRN (09:17)
[2021-07-24] MEDS: DOCUSATE SODIUM 100 MG CAPSULE PO SCH (09:17)
[2021-07-24] MEDS: FUROSEMIDE 40 MG TABLET PO SCH (09:18)
[2021-07-24] MEDS: METOPROLOL TARTRATE 25 MG TABLET PO SCH ×2 (09:18→21:29)
[2021-07-24] MEDS: hydrALAZINE 25 MG TABLET PO SCH ×3 (09:20→21:28)
[2021-07-24] MEDS: PANTOPRAZOLE 40 MG TABLET PO SCH (09:20)
[2021-07-24] MEDS: AMIODARONE 200 MG TABLET PO SCH ×2 (09:20→21:28)
[2021-07-24] MEDS: methIMAzole 5 MG TABLET PO SCH (09:20)
[2021-07-24] MEDS: CHLORHEXIDINE 0.12% ORAL RINSE 60 ML BOTTLE SWISH/SPIT SCH ×2 (09:21→21:29)
[2021-07-24] MEDS: ASPIRIN EC 81 MG TABLET PO SCH (09:21)
[2021-07-24] MEDS ORDERED: POTASSIUM CHLORIDE 20 MEQ TABLET PO ONE (10:21)
[2021-07-24 10:58] LABS: INR 1.1; PT Patient Result 12.2 SECS (10.5-12.0)
[2021-07-24] MEDS: ENOXAPARIN 40 MG/0.4 ML SYRINGE SUBCUT SCH (14:16)
[2021-07-24] MEDS: ACETAMINOPHEN 325 MG TABLET PO PRN (16:04)
[2021-07-24] MEDS: LEVOFLOXACIN INJ 500 MG/100 ML PREMIX IV SCH (16:05)
[2021-07-24] MEDS: WARFARIN 5 MG TABLET PO SCH (17:41)
[2021-07-24] MEDS: ASCORBIC ACID 500 MG TABLET PO SCH (21:28)
[2021-07-24] MEDS: ATORVASTATIN 80 MG TABLET PO SCH (21:28)
[2021-07-25 05:10] LABS: Basophils % 0.2 % (0.0-0.8); Eosinophils # 0.1 10*3/uL (0.0-0.87); Eosinophils % 0.4 % (0.00-10.9); Hematocrit 27.5 VOL% (42.0-52.0); Hemoglobin 9.2 GM/DL (14.0-18.0); Immature Granulocytes % 1.3 %; Immature Granulocytes Absolute 0.24 #; Lymphocytes # 2.1 10*3/uL (1.4-4.0); Mean Corpuscular HGB Conc 33.5 GM/DL (32-36); Mean Corpuscular Volume 82.8 FL (87-102); Mean Platelet Volume 10.8 FL (9.6-12.0); Monocytes % 7.8 % (1.7-12.7); NRBC # 0.03 10*3/uL; Neutrophils % 79.3 % (38.7-73.9); Platelet Count 299 T/CUMM (130-400); Red Blood Count 3.32 MC/CUMM (3.8-5.5); Red Cell Distribution Width 17.6 % (9.3-17.3); White Blood Count 18.7 T/CUMM (4-12)
[2021-07-25 05:25] LABS: Calcium 8.7 MG/DL (8.5-10.1); Osmolality,Calculated 275.8 MOS/KG (273-304)
[2021-07-25 05:40] LABS: INR 1.1; PT Patient Result 12.5 SECS (10.5-12.0)
[2021-07-25] MEDS: FERROUS SULFATE 325 MG TABLET PO SCH (08:38)
[2021-07-25] MEDS: PANTOPRAZOLE 40 MG TABLET PO SCH (08:38)
[2021-07-25] MEDS: ISOSORBIDE MONONITRATE 30 MG TABLET PO SCH (08:38)
[2021-07-25] MEDS: methIMAzole 5 MG TABLET PO SCH (08:38)
[2021-07-25] MEDS: ASPIRIN EC 325 MG TABLET PO SCH (08:38)
[2021-07-25] MEDS: AMIODARONE 200 MG TABLET PO SCH ×2 (08:39→20:57)
[2021-07-25] MEDS: ASCORBIC ACID 500 MG TABLET PO SCH ×2 (08:39→20:56)
[2021-07-25] MEDS: METOPROLOL TARTRATE 25 MG TABLET PO SCH ×2 (08:39→20:57)
[2021-07-25] MEDS: FUROSEMIDE 40 MG TABLET PO SCH (08:40)
[2021-07-25] MEDS: hydrALAZINE 25 MG TABLET PO SCH ×3 (08:40→20:57)
[2021-07-25] MEDS: DOCUSATE SODIUM 100 MG CAPSULE PO SCH (08:40)
[2021-07-25] MEDS: CHLORHEXIDINE 0.12% ORAL RINSE 60 ML BOTTLE SWISH/SPIT SCH ×3 (08:41→21:42)
[2021-07-25] MEDS: INSULIN REGULAR 100 UNIT/ML SUBCUT SCH ×4 (08:41→20:55)
[2021-07-25] MEDS: WARFARIN 5 MG TABLET PO SCH ×2 (12:43→17:48)
[2021-07-25] MEDS: ACETAMINOPHEN 325 MG TABLET PO PRN (15:23)
[2021-07-25] MEDS: ENOXAPARIN 40 MG/0.4 ML SYRINGE SUBCUT SCH (15:23)
[2021-07-25] MEDS: ATORVASTATIN 80 MG TABLET PO SCH (20:56)
[2021-07-26] MEDS: INSULIN REGULAR 100 UNIT/ML SUBCUT SCH ×4 (08:51→21:13)
[2021-07-26 09:34] LABS: Basophils % 0.1 % (0.0-0.8); Eosinophils # 0.1 10*3/uL (0.0-0.87); Eosinophils % 0.5 % (0.00-10.9); Hematocrit 29.3 VOL% (42.0-52.0); Hemoglobin 9.8 GM/DL (14.0-18.0); Immature Granulocytes % 1.8 %; Immature Granulocytes Absolute 0.34 #; Lymphocytes # 1.8 10*3/uL (1.4-4.0); Lymphocytes % 9.7 % (21.2-54.2); Mean Corpuscular HGB Conc 33.4 GM/DL (32-36); Mean Corpuscular Volume 82.8 FL (87-102); Mean Platelet Volume 10.3 FL (9.6-12.0); Monocytes % 4.7 % (1.7-12.7); NRBC # 0.02 10*3/uL; Neutrophils % 83.2 % (38.7-73.9); Platelet Count 369 T/CUMM (130-400); Red Blood Count 3.54 MC/CUMM (3.8-5.5); Red Cell Distribution Width 17.8 % (9.3-17.3); White Blood Count 18.8 T/CUMM (4-12)
[2021-07-26 09:45] LABS: INR 1.4; PT Patient Result 14.9 SECS (10.5-12.0)
[2021-07-26 09:54] LABS: Calcium 8.7 MG/DL (8.5-10.1); Potassium 3.5 MMOL/L (3.5-5.1)
[2021-07-26] MEDS: ASPIRIN EC 325 MG TABLET PO SCH (10:19)
[2021-07-26] MEDS: hydrALAZINE 25 MG TABLET PO SCH (10:19)
[2021-07-26] MEDS: LOSARTAN 25 MG TABLET PO SCH (10:19)
[2021-07-26] MEDS: SOTALOL 80 MG TABLET PO SCH ×2 (10:19→21:11)
[2021-07-26] MEDS: PANTOPRAZOLE 40 MG TABLET PO SCH (10:19)
[2021-07-26] MEDS: FERROUS SULFATE 325 MG TABLET PO SCH (10:19)
[2021-07-26] MEDS: ASCORBIC ACID 500 MG TABLET PO SCH ×2 (10:19→21:12)
[2021-07-26] MEDS: METOPROLOL TARTRATE 25 MG TABLET PO SCH ×2 (10:20→21:12)
[2021-07-26] MEDS: AMIODARONE 200 MG TABLET PO SCH (10:20)
[2021-07-26] MEDS: FUROSEMIDE 40 MG TABLET PO SCH (10:20)
[2021-07-26] MEDS: DOCUSATE SODIUM 100 MG CAPSULE PO SCH (10:20)
[2021-07-26] MEDS: CHLORHEXIDINE 0.12% ORAL RINSE 60 ML BOTTLE SWISH/SPIT SCH ×2 (10:24→21:13)
[2021-07-26] MEDS: methIMAzole 5 MG TABLET PO SCH (10:29)
[2021-07-26] MEDS: ISOSORBIDE MONONITRATE 30 MG TABLET PO SCH (10:46)
[2021-07-26] MEDS: POTASSIUM CHLORIDE 20 MEQ TABLET PO PRN (12:02)
[2021-07-26] MEDS: WARFARIN 5 MG TABLET PO SCH ×2 (12:02→17:51)
[2021-07-26 13:27] LABS: Bilirubin,Urine Negative (Negative); Blood, Urine Negative (Negative); Glucose,Urine (UA) Negative (Negative); Ketones,Urine Negative (Negative); Mucus,Urine Occasional /LPF (Occasional); Nitrite,Urine Negative (Negative); Protein,Urine Negative; RBC,Urine 3 /HPF (0-4); Urine Appearance CLEAR (Clear); Urine Color Yellow (Yellow); Urine Urobilinogen < 2.0 EU/DL (0.2-1.0)
[2021-07-26] MEDS: ENOXAPARIN 40 MG/0.4 ML SYRINGE SUBCUT SCH (14:15)
[2021-07-26] MEDS: ATORVASTATIN 80 MG TABLET PO SCH (21:12)
[2021-07-27 04:46] LABS: Basophils % 0.2 % (0.0-0.8); Eosinophils # 0.1 10*3/uL (0.0-0.87); Eosinophils % 0.6 % (0.00-10.9); Hematocrit 26.3 VOL% (42.0-52.0); Hemoglobin 8.8 GM/DL (14.0-18.0); Immature Granulocytes % 2.1 %; Immature Granulocytes Absolute 0.38 #; Lymphocytes # 1.8 10*3/uL (1.4-4.0); Lymphocytes % 9.9 % (21.2-54.2); Mean Corpuscular HGB Conc 33.5 GM/DL (32-36); Mean Corpuscular Volume 82.7 FL (87-102); Mean Platelet Volume 10.6 FL (9.6-12.0); Monocytes % 7.4 % (1.7-12.7); NRBC # 0.03 10*3/uL; Neutrophils % 79.8 % (38.7-73.9); Platelet Count 366 T/CUMM (130-400); Red Blood Count 3.18 MC/CUMM (3.8-5.5); Red Cell Distribution Width 17.9 % (9.3-17.3); White Blood Count 18.4 T/CUMM (4-12)
[2021-07-27 04:55] LABS: INR 1.9; PT Patient Result 20.1 SECS (10.5-12.0)
[2021-07-27 05:08] LABS: Calcium 8.2 MG/DL (8.5-10.1); Osmolality,Calculated 276.7 MOS/KG (273-304); Potassium 3.6 MMOL/L (3.5-5.1)
[2021-07-27] MEDS: ASPIRIN EC 325 MG TABLET PO SCH (08:28)
[2021-07-27] MEDS: SOTALOL 80 MG TABLET PO SCH (08:28)
[2021-07-27] MEDS: LOSARTAN 25 MG TABLET PO SCH (08:28)
[2021-07-27] MEDS: DOCUSATE SODIUM 100 MG CAPSULE PO SCH (08:29)
[2021-07-27] MEDS: METOPROLOL TARTRATE 25 MG TABLET PO SCH (08:29)
[2021-07-27] MEDS: FUROSEMIDE 40 MG TABLET PO SCH (08:29)
[2021-07-27] MEDS: PANTOPRAZOLE 40 MG TABLET PO SCH (08:29)
[2021-07-27] MEDS: methIMAzole 5 MG TABLET PO SCH (08:29)
[2021-07-27] MEDS: ASCORBIC ACID 500 MG TABLET PO SCH (08:29)
[2021-07-27] MEDS: FERROUS SULFATE 325 MG TABLET PO SCH (08:29)
[2021-07-27] MEDS: INSULIN REGULAR 100 UNIT/ML SUBCUT SCH ×2 (08:45→12:00)
[2021-07-27] MEDS ORDERED: LOSARTAN 50 MG TABLET PO SCH (09:00)
[2021-07-27] MEDS: CHLORHEXIDINE 0.12% ORAL RINSE 60 ML BOTTLE SWISH/SPIT SCH (11:14)
[2021-07-27 19:53] VITALS: BP 151/105
[2021-07-29] MEDS ORDERED: WARFARIN 7.5 MG TABLET PO SCH (12:00)
== END 2021-07-27 12:44 | disposition home health service (06) | DRG 220 ==
LOC: N.TELES 13:15 → N.CVR 07-18 10:28 → N.ICU 07-19 06:59 → N.TELES 07-19 20:30

== ENCOUNTER 2021-07-29 21:48 | Inpatient (IN) ==
[2021-07-29] MEDS ORDERED: FUROSEMIDE 40 MG/4 ML VIAL IV STA (22:12)
[2021-07-29] MEDS ORDERED: hydrALAZINE 20 MG/1 ML VIAL IV STA (22:13)
[2021-07-29 22:58] LABS: Basophils % 0.1 % (0.0-0.8); Eosinophils # 0.1 10*3/uL (0.0-0.87); Eosinophils % 0.4 % (0.00-10.9); Hematocrit 28.6 VOL% (42.0-52.0); Hemoglobin 9.7 GM/DL (14.0-18.0); Immature Granulocytes % 1.2 %; Immature Granulocytes Absolute 0.25 #; Lymphocytes # 1.7 10*3/uL (1.4-4.0); Lymphocytes % 8.3 % (21.2-54.2); Mean Corpuscular HGB Conc 33.9 GM/DL (32-36); Mean Corpuscular Volume 80.6 FL (87-102); Mean Platelet Volume 9.7 FL (9.6-12.0); Monocytes % 5.2 % (1.7-12.7); Neutrophils % 84.8 % (38.7-73.9); Platelet Count 491 T/CUMM (130-400); Red Blood Count 3.55 MC/CUMM (3.8-5.5); Red Cell Distribution Width 17.3 % (9.3-17.3); White Blood Count 20.7 T/CUMM (4-12)
[2021-07-29 23:19] LABS: PT Patient Result 17.2 SECS (10.5-12.0)
[2021-07-29 23:20] LABS: INR 1.6
[2021-07-29 23:22] LABS: Albumin 2.9 G/DL (3.4-5.0); Calcium 8.2 MG/DL (8.5-10.1); Osmolality,Calculated 276.7 MOS/KG (273-304); Potassium 3.3 MMOL/L (3.5-5.1); Total Protein 6.6 G/DL (6.4-8.2)
[2021-07-29 23:31] LABS: Hypochromasia 2+; Platelet Estimate Normal; Polychromasia Few; Target Cells 1+
[2021-07-29 23:32] LABS: Howell-Jolly Bodies Few
[2021-07-30] MEDS ORDERED: ALBUTEROL 2.5 MG/3 ML NEB RESP TX PRN (00:13)
[2021-07-30] MEDS ORDERED: traMADol 50 MG TABLET PO PRN (00:13)
[2021-07-30] MEDS ORDERED: POTASSIUM CHLORIDE 20 MEQ TABLET PO ONE (08:35)
[2021-07-30] MEDS: DOCUSATE SODIUM 100 MG CAPSULE PO SCH (10:06)
[2021-07-30] MEDS: SOTALOL 80 MG TABLET PO SCH ×2 (10:06→23:04)
[2021-07-30] MEDS: PANTOPRAZOLE 40 MG TABLET PO SCH (10:07)
[2021-07-30] MEDS: amLODIPine 10 MG TABLET PO SCH (10:07)
[2021-07-30] MEDS: methIMAzole 5 MG TABLET PO SCH (10:07)
[2021-07-30] MEDS: METOPROLOL TARTRATE 25 MG TABLET PO SCH ×2 (10:08→23:04)
[2021-07-30] MEDS: FUROSEMIDE 40 MG TABLET PO SCH (10:08)
[2021-07-30] MEDS: LOSARTAN 50 MG TABLET PO SCH (10:08)
[2021-07-30] MEDS: ASPIRIN EC 81 MG TABLET PO SCH (10:08)
[2021-07-30] MEDS: hydrALAZINE 25 MG TABLET PO SCH ×2 (10:08→23:04)
[2021-07-30] MEDS ORDERED: FUROSEMIDE 40 MG/4 ML VIAL IV ONE (10:12)
[2021-07-30] MEDS ORDERED: WARFARIN 5 MG TABLET PO SCH ×2 (18:00)
[2021-07-30] MEDS: ATORVASTATIN 40 MG TABLET PO SCH (23:04)
[2021-07-30] MEDS: ENOXAPARIN 40 MG/0.4 ML SYRINGE SUBCUT SCH (23:05)
[2021-07-31 06:03] LABS: Basophils % 0.2 % (0.0-0.8); Eosinophils # 0.1 10*3/uL (0.0-0.87); Eosinophils % 0.4 % (0.00-10.9); Hematocrit 29.2 VOL% (42.0-52.0); Hemoglobin 9.9 GM/DL (14.0-18.0); Immature Granulocytes % 0.8 %; Immature Granulocytes Absolute 0.15 #; Lymphocytes # 1.8 10*3/uL (1.4-4.0); Mean Corpuscular HGB Conc 33.9 GM/DL (32-36); Mean Corpuscular Volume 82.3 FL (87-102); Mean Platelet Volume 9.7 FL (9.6-12.0); Monocytes % 6.5 % (1.7-12.7); Neutrophils % 83.1 % (38.7-73.9); Platelet Count 512 T/CUMM (130-400); Red Blood Count 3.55 MC/CUMM (3.8-5.5); Red Cell Distribution Width 17.4 % (9.3-17.3); White Blood Count 19.4 T/CUMM (4-12)
[2021-07-31 06:38] LABS: Calcium 8.7 MG/DL (8.5-10.1); Osmolality,Calculated 278.5 MOS/KG (273-304); Potassium 3.3 MMOL/L (3.5-5.1)
[2021-07-31] MEDS ORDERED: POTASSIUM CHLORIDE 20 MEQ TABLET PO ONE (08:01)
[2021-07-31 09:32] LABS: INR 1.3
[2021-07-31] MEDS: SOTALOL 80 MG TABLET PO SCH ×2 (10:00→20:49)
[2021-07-31] MEDS: FUROSEMIDE 40 MG TABLET PO SCH (10:00)
[2021-07-31] MEDS: METOPROLOL TARTRATE 25 MG TABLET PO SCH ×2 (10:00→20:49)
[2021-07-31] MEDS: PANTOPRAZOLE 40 MG TABLET PO SCH (10:00)
[2021-07-31] MEDS: LOSARTAN 50 MG TABLET PO SCH (10:01)
[2021-07-31] MEDS: methIMAzole 5 MG TABLET PO SCH (10:02)
[2021-07-31] MEDS: amLODIPine 10 MG TABLET PO SCH (10:02)
[2021-07-31] MEDS: ASPIRIN EC 81 MG TABLET PO SCH (10:02)
[2021-07-31] MEDS: hydrALAZINE 25 MG TABLET PO SCH ×2 (10:04→20:49)
[2021-07-31] MEDS: DOCUSATE SODIUM 100 MG CAPSULE PO SCH (10:04)
[2021-07-31] MEDS ORDERED: MORPHINE 2 MG/1 ML SYRINGE IV PRN (17:45)
[2021-07-31] MEDS: WARFARIN 5 MG TABLET PO SCH (18:03)
[2021-07-31] MEDS: ATORVASTATIN 40 MG TABLET PO SCH (20:49)
[2021-07-31] MEDS: ENOXAPARIN 40 MG/0.4 ML SYRINGE SUBCUT SCH (20:49)
[2021-08-01 05:38] LABS: Basophils % 0.2 % (0.0-0.8); Eosinophils % 0.1 % (0.00-10.9); Hematocrit 30.6 VOL% (42.0-52.0); Hemoglobin 10.1 GM/DL (14.0-18.0); Immature Granulocytes % 0.7 %; Immature Granulocytes Absolute 0.12 #; Lymphocytes # 1.5 10*3/uL (1.4-4.0); Mean Corpuscular Volume 82.3 FL (87-102); Mean Platelet Volume 9.3 FL (9.6-12.0); Monocytes % 7.6 % (1.7-12.7); Neutrophils % 82.4 % (38.7-73.9); Platelet Count 517 T/CUMM (130-400); Red Blood Count 3.72 MC/CUMM (3.8-5.5); Red Cell Distribution Width 17.4 % (9.3-17.3); White Blood Count 17.1 T/CUMM (4-12)
[2021-08-01] MEDS ORDERED: SIMETHICONE CHEW 125 MG TABLET PO SCH (06:00)
[2021-08-01 06:01] LABS: Calcium 8.6 MG/DL (8.5-10.1); Osmolality,Calculated 279.5 MOS/KG (273-304); Potassium 3.9 MMOL/L (3.5-5.1)
[2021-08-01] MEDS ORDERED: SIMETHICONE CHEW 125 MG TABLET PO ONE (06:10)
[2021-08-01] MEDS: SOTALOL 80 MG TABLET PO SCH ×2 (09:06→20:31)
[2021-08-01] MEDS: METOPROLOL TARTRATE 25 MG TABLET PO SCH ×2 (09:07→20:31)
[2021-08-01] MEDS: LOSARTAN 50 MG TABLET PO SCH (09:07)
[2021-08-01] MEDS: hydrALAZINE 25 MG TABLET PO SCH ×2 (09:07→20:31)
[2021-08-01] MEDS: ASPIRIN EC 81 MG TABLET PO SCH (09:07)
[2021-08-01] MEDS: methIMAzole 5 MG TABLET PO SCH (09:08)
[2021-08-01] MEDS: DOCUSATE SODIUM 100 MG CAPSULE PO SCH (09:08)
[2021-08-01] MEDS: amLODIPine 10 MG TABLET PO SCH (09:08)
[2021-08-01] MEDS: PANTOPRAZOLE 40 MG TABLET PO SCH (09:08)
[2021-08-01 09:10] LABS: INR 1.3; PT Patient Result 14.4 SECS (10.5-12.0)
[2021-08-01] MEDS: SIMETHICONE CHEW 125 MG TABLET PO PRN ×2 (09:20→20:31)
[2021-08-01] MEDS: FUROSEMIDE 40 MG TABLET PO SCH (09:20)
[2021-08-01] MEDS: ENOXAPARIN 40 MG/0.4 ML SYRINGE SUBCUT SCH (20:31)
[2021-08-01] MEDS: ATORVASTATIN 40 MG TABLET PO SCH (20:31)
[2021-08-01] MEDS ORDERED: ALPRAZolam 0.25 MG TABLET PO PRN (20:57)
[2021-08-01] MEDS: ZALEPLON 5 MG CAPSULE PO PRN (21:10)
[2021-08-01] MEDS: ACETAMINOPHEN 325 MG TABLET PO PRN (21:10)
[2021-08-02 06:25] LABS: Basophils % 0.2 % (0.0-0.8); Eosinophils # 0.1 10*3/uL (0.0-0.87); Eosinophils % 0.8 % (0.00-10.9); Hematocrit 28.4 VOL% (42.0-52.0); Hemoglobin 9.4 GM/DL (14.0-18.0); Immature Granulocytes Absolute 0.15 #; Lymphocytes # 1.3 10*3/uL (1.4-4.0); Lymphocytes % 8.3 % (21.2-54.2); Mean Corpuscular HGB Conc 33.1 GM/DL (32-36); Mean Corpuscular Volume 81.4 FL (87-102); Mean Platelet Volume 9.1 FL (9.6-12.0); Monocytes % 7.8 % (1.7-12.7); Neutrophils % 81.9 % (38.7-73.9); Platelet Count 460 T/CUMM (130-400); Red Blood Count 3.49 MC/CUMM (3.8-5.5); Red Cell Distribution Width 17.6 % (9.3-17.3); White Blood Count 15.6 T/CUMM (4-12)
[2021-08-02 06:36] LABS: INR 1.3; PT Patient Result 14.6 SECS (10.5-12.0)
[2021-08-02 06:53] LABS: Calcium 8.5 MG/DL (8.5-10.1); Osmolality,Calculated 278.5 MOS/KG (273-304); Potassium 3.3 MMOL/L (3.5-5.1)
[2021-08-02] MEDS ORDERED: POTASSIUM CHLORIDE 20 MEQ TABLET PO ONE (07:15)
[2021-08-02] MEDS: ASPIRIN EC 81 MG TABLET PO SCH (09:16)
[2021-08-02] MEDS: SOTALOL 80 MG TABLET PO SCH ×2 (09:16→20:43)
[2021-08-02] MEDS: DOCUSATE SODIUM 100 MG CAPSULE PO SCH (09:16)
[2021-08-02] MEDS: amLODIPine 10 MG TABLET PO SCH (09:17)
[2021-08-02] MEDS: METOPROLOL TARTRATE 25 MG TABLET PO SCH ×2 (09:17→20:43)
[2021-08-02] MEDS: hydrALAZINE 25 MG TABLET PO SCH ×2 (09:17→20:43)
[2021-08-02] MEDS: methIMAzole 5 MG TABLET PO SCH (09:17)
[2021-08-02] MEDS: PANTOPRAZOLE 40 MG TABLET PO SCH (09:17)
[2021-08-02] MEDS: LOSARTAN 50 MG TABLET PO SCH (09:17)
[2021-08-02] MEDS: FUROSEMIDE 40 MG TABLET PO SCH (09:17)
[2021-08-02] MEDS: ACETAMINOPHEN 325 MG TABLET PO PRN (13:37)
[2021-08-02] MEDS: WARFARIN 5 MG TABLET PO SCH (18:11)
[2021-08-02] MEDS: ATORVASTATIN 40 MG TABLET PO SCH (20:43)
[2021-08-02] MEDS: ZALEPLON 5 MG CAPSULE PO PRN (20:43)
[2021-08-02] MEDS: ENOXAPARIN 40 MG/0.4 ML SYRINGE SUBCUT SCH (20:46)
[2021-08-03] MEDS: ACETAMINOPHEN 325 MG TABLET PO PRN (05:21)
[2021-08-03 05:40] LABS: Basophils % 0.1 % (0.0-0.8); Eosinophils # 0.2 10*3/uL (0.0-0.87); Hematocrit 27.3 VOL% (42.0-52.0); Hemoglobin 9.1 GM/DL (14.0-18.0); Immature Granulocytes % 0.6 %; Immature Granulocytes Absolute 0.09 #; Lymphocytes # 1.5 10*3/uL (1.4-4.0); Lymphocytes % 9.5 % (21.2-54.2); Mean Corpuscular HGB Conc 33.3 GM/DL (32-36); Mean Corpuscular Volume 80.3 FL (87-102); Mean Platelet Volume 9.3 FL (9.6-12.0); Monocytes % 7.1 % (1.7-12.7); Neutrophils % 81.7 % (38.7-73.9); Platelet Count 450 T/CUMM (130-400); Red Cell Distribution Width 17.4 % (9.3-17.3); White Blood Count 15.3 T/CUMM (4-12)
[2021-08-03 05:51] LABS: INR 1.3
[2021-08-03 06:01] LABS: Calcium 8.6 MG/DL (8.5-10.1); Osmolality,Calculated 274.8 MOS/KG (273-304); Potassium 3.6 MMOL/L (3.5-5.1)
[2021-08-03] MEDS ORDERED: WARFARIN 7.5 MG TABLET PO ONE (09:01)
[2021-08-03 10:14] VITALS: BP 119/85
[2021-08-03] MEDS: LOSARTAN 50 MG TABLET PO SCH (11:16)
[2021-08-03] MEDS: FUROSEMIDE 40 MG TABLET PO SCH (11:16)
[2021-08-03] MEDS: ASPIRIN EC 81 MG TABLET PO SCH (11:17)
[2021-08-03] MEDS: SOTALOL 80 MG TABLET PO SCH (11:17)
[2021-08-03] MEDS: PANTOPRAZOLE 40 MG TABLET PO SCH (11:17)
[2021-08-03] MEDS: amLODIPine 10 MG TABLET PO SCH (11:17)
[2021-08-03] MEDS: hydrALAZINE 25 MG TABLET PO SCH (11:17)
[2021-08-03] MEDS: METOPROLOL TARTRATE 25 MG TABLET PO SCH (11:17)
[2021-08-03] MEDS: methIMAzole 5 MG TABLET PO SCH (11:17)
[2021-08-03] MEDS: DOCUSATE SODIUM 100 MG CAPSULE PO SCH (11:17)
== END 2021-08-03 12:35 | disposition home health service (06) | DRG 291 ==
LOC: N.ED 21:48 → N.EDINP 07-30 00:10 → N.TELEN 07-30 01:13
PROVIDERS: ADMIT Internal Medicine Cardiovascular Disease; ATTEND Internal Medicine Cardiovascular Disease
PROC: IRTHORA (2021-07-31 14:20)

== ENCOUNTER 2021-09-04 22:40 | Observation (INO) ==
[2021-09-05] MEDS ORDERED: FUROSEMIDE 40 MG/4 ML VIAL IV STA (03:19)
[2021-09-05] MEDS ORDERED: ONDANSETRON 4 MG/2 ML VIAL IV STA (03:19)
[2021-09-05] MEDS ORDERED: hydrALAZINE 20 MG/1 ML VIAL IV STA ×2 (03:19→04:16)
[2021-09-05 03:37] LABS: Basophils % 0.1 % (0.0-0.8); Eosinophils # 0.2 10*3/uL (0.0-0.87); Eosinophils % 1.6 % (0.00-10.9); Hematocrit 37.2 VOL% (42.0-52.0); Hemoglobin 12.3 GM/DL (14.0-18.0); Immature Granulocytes % 0.4 %; Immature Granulocytes Absolute 0.05 #; Lymphocytes # 1.8 10*3/uL (1.4-4.0); Lymphocytes % 15.5 % (21.2-54.2); Mean Corpuscular HGB Conc 33.1 GM/DL (32-36); Mean Corpuscular Volume 75.9 FL (87-102); Mean Platelet Volume 9.7 FL (9.6-12.0); Monocytes % 3.8 % (1.7-12.7); Neutrophils % 78.6 % (38.7-73.9); Platelet Count 308 T/CUMM (130-400); Red Cell Distribution Width 16.2 % (9.3-17.3); White Blood Count 11.5 T/CUMM (4-12)
[2021-09-05 03:53] LABS: Albumin 3.8 G/DL (3.4-5.0); Bilirubin,Total 0.7 MG/DL (0.20-1.00); Calcium 8.8 MG/DL (8.5-10.1); Osmolality,Calculated 279.4 MOS/KG (273-304); Potassium 3.1 MMOL/L (3.5-5.1); Total Protein 8.6 G/DL (6.4-8.2)
[2021-09-05 03:54] LABS: INR 1.1; PT Patient Result 12.3 SECS (10.5-12.0)
[2021-09-05] MEDS ORDERED: POTASSIUM CHLORIDE 20 MEQ TABLET PO STA (04:06)
[2021-09-05] MEDS ORDERED: MAGNESIUM SULF RIDER 4 GM/100 ML PREMIX IV PRN (08:30)
[2021-09-05] MEDS ORDERED: MAGNESIUM SULF RIDER 2 GM/50 ML PREMIX IV PRN (08:30)
[2021-09-05] MEDS ORDERED: SODIUM CHLORIDE 0.9% 1,000 ML IV SCH (08:30)
[2021-09-05] MEDS ORDERED: ALBUTEROL 2.5 MG/3 ML NEB RESP TX PRN (08:30)
[2021-09-05] MEDS ORDERED: ONDANSETRON 4 MG/2 ML VIAL IV PRN (08:30)
[2021-09-05] MEDS ORDERED: hydrALAZINE 20 MG/1 ML VIAL IV PRN (08:30)
[2021-09-05] MEDS ORDERED: MORPHINE 2 MG/1 ML SYRINGE IV PRN (08:30)
[2021-09-05] MEDS ORDERED: PANTOPRAZOLE 40 MG TABLET PO SCH (09:00)
[2021-09-05] MEDS ORDERED: methylPREDNISolone 4 MG TABLET PO SCH (10:00)
[2021-09-05] MEDS ORDERED: NON-FORMULARY MEDICATION (Albuterol Sulfate 90 mcg/actuation HFA aerosol inhaler) INH PRN (10:04)
[2021-09-05] MEDS ORDERED: cloNIDine 0.1 MG TABLET PO PRN (10:06)
[2021-09-05] MEDS: SOTALOL 80 MG TABLET PO SCH ×2 (12:17→22:06)
[2021-09-05] MEDS ORDERED: methIMAzole 10 MG TABLET PO SCH (12:30)
[2021-09-05] MEDS ORDERED: hydrALAZINE 25 MG TABLET PO SCH (15:00)
[2021-09-05] MEDS: methIMAzole 5 MG TABLET PO SCH ×2 (15:00→17:46)
[2021-09-05] MEDS ORDERED: SIMETHICONE CHEW 80 MG TABLET PO PRN (17:47)
[2021-09-05] MEDS ORDERED: ATORVASTATIN 40 MG TABLET PO SCH (19:00)
[2021-09-05] MEDS ORDERED: SOTALOL 80 MG TABLET PO SCH (21:00)
[2021-09-05] MEDS: FUROSEMIDE 40 MG TABLET PO SCH (21:13)
[2021-09-05] MEDS: hydrALAZINE 25 MG TABLET PO SCH (21:13)
[2021-09-05] MEDS: methylPREDNISolone 4 MG TABLET PO SCH (21:14)
[2021-09-06 04:48] LABS: Basophils % 0.1 % (0.0-0.8); Hematocrit 36.8 VOL% (42.0-52.0); Hemoglobin 12.1 GM/DL (14.0-18.0); Immature Granulocytes % 0.3 %; Immature Granulocytes Absolute 0.04 #; Lymphocytes # 0.9 10*3/uL (1.4-4.0); Lymphocytes % 7.9 % (21.2-54.2); Mean Corpuscular HGB Conc 32.9 GM/DL (32-36); Mean Corpuscular Volume 76.2 FL (87-102); Mean Platelet Volume 9.6 FL (9.6-12.0); Neutrophils % 90.7 % (38.7-73.9); Platelet Count 330 T/CUMM (130-400); Red Blood Count 4.83 MC/CUMM (3.8-5.5); Red Cell Distribution Width 16.5 % (9.3-17.3); White Blood Count 11.8 T/CUMM (4-12)
[2021-09-06 05:15] LABS: Hypochromasia 1+; Lymphocytes 5 % (20-55); Microcytosis 1+; Platelet Estimate Adequate; Segmented Neutrophils 93 % (50-85); Total Cells Counted 100
[2021-09-06 05:33] LABS: Osmolality,Calculated 281.5 MOS/KG (273-304); Potassium 3.3 MMOL/L (3.5-5.1)
[2021-09-06] MEDS ORDERED: POTASSIUM CHLORIDE 20 MEQ TABLET PO ONE (07:48)
[2021-09-06] MEDS: SOTALOL 80 MG TABLET PO SCH (08:16)
[2021-09-06] MEDS: methylPREDNISolone 4 MG TABLET PO SCH (08:16)
[2021-09-06] MEDS: methIMAzole 5 MG TABLET PO SCH (08:16)
[2021-09-06] MEDS: FUROSEMIDE 40 MG TABLET PO SCH (08:16)
[2021-09-06] MEDS: hydrALAZINE 25 MG TABLET PO SCH (08:17)
[2021-09-06 08:25] LABS: Eosinophils,Pleural Fluid 3 %; Lymphocytes,Pleural Fluid 90 %; Monocytes,Pleural Fluid 4 %; Neutrophils,Pleural Fluid 3 %; RBC,Pleural Fluid 262 T/CUMM
[2021-09-06 08:54] VITALS: BP 144/90
[2021-09-06] MEDS ORDERED: POTASSIUM CHLORIDE 20 MEQ TABLET PO SCH (09:00)
[2021-09-06] MEDS ORDERED: amLODIPine 10 MG TABLET PO SCH (09:00)
[2021-09-06] MEDS ORDERED: LOSARTAN 50 MG TABLET PO SCH (09:00)
[2021-09-06] MEDS ORDERED: ASPIRIN EC 81 MG TABLET PO SCH (09:00)
[2021-09-06] MEDS ORDERED: PANTOPRAZOLE 40 MG TABLET PO SCH (09:00)
[2021-09-06] MEDS ORDERED: DOCUSATE SODIUM 100 MG CAPSULE PO SCH (09:00)
== END 2021-09-06 10:03 | disposition home health service (06) ==
LOC: N.EDINP 22:40 → N.ED 22:40 → N.TELES 09-05 22:33
PROC: IRTHORA (2021-09-05 15:05)